=== PATIENT | female | born 1985 | race African-American/Black ===

== ENCOUNTER 2016-09-01 19:55 | Emergency (ER) | payer OTHER ==
[~2016-09-01 19:55] MED LIST: ABILIFY 15MG15 MG PO; AMITRIPTYLINE H25 M2; AMOXICILLIN875 MG PO; AMOXIL500 MG PO; AUGMENTIN 500M500 MG PO; BACTRIM DS 8001 TAB PO; BENTYL20 MG PO; BIRTH CONTROL PO; BLM PO; CEPHALEXIN500 MG PO; CIPRO 500MG TA500 MG PO; CLONAZEPAM1 MG PO; DEPO-PROVER150 MG/ML IM; DIFLUCAN150 MG PO; DOXYCYCLINE100 MG PO; ENDOCET 325 MG-1 TA1 PO; FIORICET 50-301 EACH PO; FLAG500 PO; FLEXERIL10 MG PO; FLUOXETINE20 MG PO; HYDROCODONE/ACE1 TA1 PO; IBU600 MG PO; IMITREX50 M1 PO; LIDODERM 5% PAT1 PAT TOP; LIORESAL 10MG T10 MG PO; MACROBID100 MG PO; MEDROL DOSEPAK1 PAC PO; MEDROXYPROG150 MG/ML IM; MOBIC15 MG PO; MOTRIN 600 MG600 MG PO; MOTRIN800 MG PO; MULTI-DAY VITA1 EACH PO; NAPROSYN 500 M500 MG PO; NEURONTIN300 M1 PO; NEURONTIN300 MG PO; PAXIL40 MG PO; PERCOCET 325 MG1 TA2 PO; PERCOCET 5-3251 EACH PO; PREDNISONE10 MG PO; PREDNISONE20 M1 PO; PRILOSEC 20MG C20 MG PO; PRILOSEC40 MG PO; PROMETHAZINE HC25 M3 PO; PROVENTIL0.09 MG/A1 INH; PYRIDIUM100 MG PO; PYRIDIUM200 M1 PO; PYRIDIUM200 MG PO; SKELAXIN800 MG PO; TESSALON PERLE100 MG PO; TOPIRAMATE25 MG PO; TRAMADOL HCL50 M1 PO; TRAMADOL50 MG PO; TRAZODONE100 MG PO; TYLENOL #31 TAB PO; VIBRAMYCIN 100100 MG PO; VICODIN 300 MG-1 TAB PO; VICODIN5-300 PO; ZITHROMAX Z-PA250 M1 PO; ZOFRAN ODT4 MG PO; ZOFRAN4 M1 PO
--- NOTE | 2016-09-01 20:25 | ED GENERAL ADULT ---
History of Present Illness General Chief Complaint: General Adult Stated Complaint: "I CANT EXPLAIN I JUST DONT FEEL RIGHT" Source: patient Exam Limitations: no limitations Vital Signs & Intake/Output Vital Signs & Intake/Output Vital Signs Date Time Temp Pulse Resp B/P Pulse O2 O2 Flow FiO2 Ox Delivery Rate 09/01 2139 98.2 80 18 120/79 99 Room Air 09/01 2006 98.0 82 22 121/82 98 Room Air ED Intake and Output 09/02 0000 09/01 1200 Intake Total 0 Output Total Balance 0 Intake, Oral 0 Patient 180 lb Weight Allergies Coded Allergies: NO KNOWN ALLERGIES (10/22/15) Reconcile Medications Amitriptyline HCl (Unknown Strength) TABLET (Unknown Dose) UNKNOWN (Reported) Butalb/Acetaminophen/Caffeine (Fioricet 50-300-40 MG Capsule) 50 MG-300 MG-40 MG CAPSULE 1 TAB PO Q4H PRN HEADACHE Gabapentin (Neurontin) 300 MG CAPSULE 1 CAP PO TID PAIN CONTROL (Reported) Norgestimate-Ethinyl Estradiol (Tri-Sprintec Tablet) [id number] 28 TABLET 1 TAB PO DAILY CONTROL (Reported) Oxycodone HCl/Acetaminophen (Percocet 5-325 MG Tablet) 5 MG-325 MG TABLET 1 TAB PO TID PRN HEADACHE Triage Note: PER PT "IF I HAD A CAR I WOULD GO SOMEWHERE ELSE" YOU PEOPLE CANNOT EVER FIND IT OUT". PT HAD UROLOGICAL PROCEDURE HX OF INTERSTITIAL CYSTITIS ALSO PASS ALOT OF STONES, THROBBING PAIN UNSURE OF LAST MENSES. Triage Nurses Notes Reviewed? yes Onset: Gradual Duration: day(s):, waxing and waning Injury Environment: home Severity: moderate Modifying Factors: Worsens With: movement. Associated Symptoms: dysuria, lower abdominal pressure : No Patient currently breastfeeds: No HPI: 31 yo woman, history of interstitial cystitis, status post Botox injection one month ago, presents with lower abdominal pain for the past 5-6 days. She states, "I've been having these symptoms off and on for years. I know there is no cure. I feel nauseous, weak all over, with body aches." She notes that it [place] when she urinates, consistent with her prior episodes of interstitial cystitis. She has no fever chills vaginal discharge diarrhea chest pain shortness of breath. Past History Travel History Traveled to [place] past 21 day No Medical History Any Pertinent Medical History? see below for history Neurological: migraine EENT: NONE Cardiovascular: NONE Respiratory: NONE Gastrointestinal: NONE Hepatic: NONE Renal: URINARY RETENTION Musculoskeletal: disk herniation, fibromyalgia Psychiatric: anxiety, depression Endocrine: hypoglycemia Blood Disorders: PE Cancer(s): NONE CAGE LOADER/Reproductive: OVARIAN CYST History of MRSA: No History of VRE: No History of CDIFF: No Tetanus Vaccine: 09/27/11 Surgical History Surgical History: URETHRA RESECTION AND TUMOR REMOVAL. bladder strecthing surgery Psychosocial History What is your primary language Divehi Tobacco Use: Current Daily Use Daily Tobacco Use Amount/Type: => 5 Cigarettes daily Family History Family History, If Any: Relation not specified for: *No pertinent family history Hx Contributory? No Review of Systems Review of Systems Constitutional: Reports: no symptoms. EENTM: Reports: no symptoms. Respiratory: Reports: no symptoms. Cardiovascular: Reports: no symptoms. GI: Reports: no symptoms. Genitourinary: Reports: no symptoms. Musculoskeletal: Reports: no symptoms. Skin: Reports: no symptoms. Neurological/Psychological: Reports: no symptoms. Hematologic/Endocrine: Reports: no symptoms. Immunologic/Allergic: Reports: no symptoms. All Other Systems: Reviewed and Negative Physical Exam Physical Exam General Appearance: well developed/nourished, mild distress Head: atraumatic, normal appearance Eyes: Bilateral: normal appearance. Ears, Nose, Throat: normal pharynx Neck: normal inspection, supple, full range of motion Respiratory: normal breath sounds, chest non-tender, no respiratory distress, quiet respiration Cardiovascular: regular rate/rhythm Gastrointestinal: normal bowel sounds, soft, no organomegaly, minimal right lower quadrant and suprapubic tenderness to palpation Back: normal inspection, normal range of motion Extremities: normal inspection, normal capillary refill, normal range of motion, no edema Neurologic/Psych: no motor/sensory deficits, awake, alert, oriented x 3 Skin: intact, normal color, warm/dry Core Measures ACS in differential dx? No CVA/TIA Diagnosis: No Severe Sepsis Present: No Septic Shock Present: No Progress Differential Diagnoses I considered the following diagnoses in my evaluation of the patient: Kidney stones versus interstitial cystitis versus UTI versus appendicitis versus other Plan of Care: Orders Procedure Date/time Status URINALYSIS 09/01 2032 Complete LIPASE 09/01 2032 Complete HEPATIC FUNCTION PANEL 02/24 2033 Complete HUMAN BETA HCG SCREEN 09/01 2032 Complete CBC WITHOUT DIFFERENTIAL 09/01 2032 Complete BASIC METABOLIC PANEL 09/01 2032 Complete AMYLASE 09/01 2032 Complete Laboratory Tests 09/01/162055: Urine Color YEL, Urine Clarity CLEAR, Urine pH 6.5, Ur Specific [place] <= 1.005 , Urine Protein NEG, Urine Ketones NEG, Urine Nitrite NEG, Urine Bilirubin NEG, Urine Urobilinogen 0.2, Ur Leukocyte Esterase NEG, Ur Microscopic EXAM NOT REQUIRED, Urine Hemoglobin NEG, Urine Glucose NEG 09/01/162052: Anion Gap 8, Estimated GFR > 60, BUN/Creatinine Ratio 11.4, Glucose 85, Calcium 9.3, Total Bilirubin 0.5, Direct Bilirubin 0.3, AST 18, ALT 21, Alkaline Phosphatase 84, Total Protein 7.0, Albumin 4.0, Amylase 52, Lipase 49, Total Beta HCG NEGATIVE, CBC w Diff NO MAN DIFF REQ, RBC 4.63, MCV 85.8, MCH 28.1, RDW 13.9, MPV 9.2, Gran % 56.3, Lymphocytes % 33.7, Monocytes % 6.2, Eosinophils % 2.7, Basophils % 1.1, Absolute Granulocytes 7.2 H, Absolute Lymphocytes 4.3 H, Absolute Monocytes 0.8 H, Absolute Eosinophils 0.3, Absolute Basophils 0.1, PUBS MCHC 32.7 L Diagnostic Imaging: Viewed by Me: CT Scan. Discussed w/RAD: CT Scan. Radiology Impression: ABD/PELVIC... NO ACUTE CHANGE. Initial ED EKG: none Comments: PATIENT: REYES DE LA ROSA PRESENT AGE: 31 PATIENT ACCOUNT NO: [id number] : 86 LOCATION: [facility] ORDERING PHYSICIAN: LADONNA OSWALD MD SERVICE DATE: 09/01/16 EXAM TYPE: CAT - CT ABD & PELVIS W/O IV CONTRAS EXAMINATION: CT ABDOMEN AND PELVIS WITHOUT CONTRAST CLINICAL INFORMATION: Right lower quadrant pain. COMPARISON: CT scan abdomen pelvis 09/25/2015 TECHNIQUE: Multidetector volumetric imaging was performed from the superior aspect of the liver through the pubic symphysis. Sagittal and coronal reformatted images were obtained on the technologist's workstation. DLP: 304.31 mGy-cm FINDINGS: LUNG BASES: The visualized lung bases are unremarkable. LIVER, GALLBLADDER, AND BILIARY TREE: The liver is normal in size, shape, and attenuation. No focal hepatic lesion or biliary ductal dilatation is present. Gallbladder is contracted. No bile duct dilatation. PANCREAS: Unremarkable. SPLEEN: Unremarkable. ADRENAL GLANDS: Unremarkable. KIDNEYS AND URETERS: The kidneys are normal in size, shape, and attenuation. No hydronephrosis, hydroureter, or calculi seen. No perinephric stranding. BLADDER: Unremarkable. GASTROINTESTINAL TRACT: The small and large bowel are unremarkable. The appendix is unremarkable. ABDOMINAL WALL: No significant hernia is appreciated. LYMPH NODES: Normal. VASCULAR: Unremarkable. PELVIC VISCERA: Unremarkable. OSSEOUS STRUCTURES: Unremarkable. IMPRESSION: No significant abnormality. Normal appendix. DICTATED BY: ANGELINA MORELOS MD DATE/TIME DICTATED:09/01/162343 INSPECTOR RAG SORTING:GINA DATE/TIME TRANSCRIBED:09/01/162343 CONFIDENTIAL, DO NOT COPY WITHOUT APPROPRIATE AUTHORIZATION. <Electronically signed in Other Vendor System> SIGNED BY: ANGELINA MORELOS MD 09/01/16 9910 Departure Departure Disposition: HOME OR SELF CARE Condition: Stable Clinical Impression Primary Impression: Abdominal pain Referrals: JONNATHAN MOONEY MD (PCP/Family) Departure Forms: Customer Survey General Discharge Information Comments 09/02/16, 0:05.... pt feeling well. benign labs, negative ct scan. pt safe for discharge. Critical Care Note Critical Care Note Critical Care Time: non-applicable
[2016-09-01 21:00] LABS: ABSOLUTE BASOPHIL COUNT 0.1 /CUMM (0.0-0.2); ABSOLUTE EOSINOPHIL COUNT 0.3 /CUMM (0.0-0.7); ABSOLUTE GRANULOCYTE CT 7.2 /CUMM (1.4-6.5); ABSOLUTE LYMPH COUNT 4.3 /CUMM (1.2-3.4); ABSOLUTE MONOCYTE COUNT 0.8 /CUMM (0.10-0.60); BASOPHIL % 1.1 % (0.0-2.0); EOSINOPHIL % 2.7 % (0-5); GRANULOCYTE % 56.3 % (42.2-75.2); HEMATOCRIT 39.8 % (37-47); MEAN CORPUSCULAR HGB 28.1 PG (27.0-31.0); MEAN CORPUSCULAR HGB CONC 32.7 G/DL (33.0-37.0); MEAN CORPUSCULAR VOLUME 85.8 FL (81.0-99.0); MEAN PLATELET VOLUME 9.2 FL (7.4-10.4); PLATELET COUNT 207 /CUMM (130-400); RBC DISTRIBUTION WIDTH 13.9 % (11.5-14.5); RED BLOOD CELL CT 4.63 /CUMM (4.20-5.40); WHITE BLOOD CELL COUNT 12.7 /CUMM (4.8-10.8)
[2016-09-01 21:40] VITALS: BP 120/79
[2016-09-01] MEDS ORDERED: TRI-SPRINTEC T1 EACH PO (23:33)
--- NOTE | 2016-09-01 23:53 | CT SCAN REPORT ---
EXAMINATION: CT ABDOMEN AND PELVIS WITHOUT CONTRAST CLINICAL INFORMATION: Right lower quadrant pain. COMPARISON: CT scan abdomen pelvis 09/25/2015 TECHNIQUE: Multidetector volumetric imaging was performed from the superior aspect of the liver through the pubic symphysis. Sagittal and coronal reformatted images were obtained on the technologist's workstation. DLP: 304.31 mGy-cm FINDINGS: LUNG BASES: The visualized lung bases are unremarkable. LIVER, GALLBLADDER, AND BILIARY TREE: The liver is normal in size, shape, and attenuation. No focal hepatic lesion or biliary ductal dilatation is present. Gallbladder is contracted. No bile duct dilatation. PANCREAS: Unremarkable. SPLEEN: Unremarkable. ADRENAL GLANDS: Unremarkable. KIDNEYS AND URETERS: The kidneys are normal in size, shape, and attenuation. No hydronephrosis, hydroureter, or calculi seen. No perinephric stranding. BLADDER: Unremarkable. GASTROINTESTINAL TRACT: The small and large bowel are unremarkable. The appendix is unremarkable. ABDOMINAL WALL: No significant hernia is appreciated. LYMPH NODES: Normal. VASCULAR: Unremarkable. PELVIC VISCERA: Unremarkable. OSSEOUS STRUCTURES: Unremarkable. IMPRESSION: No significant abnormality. Normal appendix.
== END 2016-09-02 00:46 ==
LOC: ERH 19:55
PROVIDERS: Pediatrics
DX: R10.30 Lower abdominal pain, unspecified (principal)
CPT/HCPCS: 74176; 81003; 96372; 96374; 96375; J0500; J1885; J2405

== ENCOUNTER 2016-09-10 00:25 | Emergency (ER) | payer OTHER ==
[~2016-09-10] VITALS: Ht 162.6 cm; Wt 81.6 kg
[~2016-09-10 00:25] MED LIST changes: +TRI-SPRINTEC T1 EACH PO
--- NOTE | 2016-09-10 00:32 | ED GI/GU/ABDOMINAL COMPLAINT ---
History of Present Illness General Chief Complaint: General Adult Stated Complaint: KIDNEY STONE PAIN Source: patient, old records Exam Limitations: no limitations Vital Signs & Intake/Output Vital Signs & Intake/Output Vital Signs Date Time Temp Pulse Resp B/P Pulse O2 O2 Flow FiO2 Ox Delivery Rate 09/10 0025 96.8 96 18 136/74 100 Room Air Allergies Coded Allergies: NO KNOWN ALLERGIES (10/22/15) Reconcile Medications Amitriptyline HCl (Unknown Strength) TABLET (Unknown Dose) UNKNOWN (Reported) Butalb/Acetaminophen/Caffeine (Fioricet 50-300-40 MG Capsule) 50 MG-300 MG-40 MG CAPSULE 1 TAB PO Q4H PRN HEADACHE Gabapentin (Neurontin) 300 MG CAPSULE 1 CAP PO TID PAIN CONTROL (Reported) Norgestimate-Ethinyl Estradiol (Tri-Sprintec Tablet) [id number] 28 TABLET 1 TAB PO DAILY CONTROL (Reported) Oxycodone HCl/Acetaminophen (Percocet 5-325 MG Tablet) 5 MG-325 MG TABLET 1 TAB PO TID PRN HEADACHE Triage Nurses Notes Reviewed? yes ? U Is pt currently ? No Duration: getting worse Timing: recent history Severity Numbers: 10 Location: generalized abdomen Radiation: back Activities at Onset: none HPI: Patient is a 31-year-old female with past medical history of kidney stones and interstitial cystitis who presents emergency room stating that for the last 4 days patient has had worsening symptoms of generalized abdominal pain with radiation to her back patient was evaluated by her urologist yesterday Dr. ADAMS was prescribed Percocet which patient took medications for the last 24 hours with no relief of pain. Patient states that she has had no bowel movements the past 4 days however she does state that she passed a little water through a bowel movement no blood no melena noted. Patient denies any fever chills or nausea or vomiting. Patient does complain of dysuria however no frequency changes of urination and no vaginal bleeding or discharge. (KATYA DOAN) Past History Travel History Traveled to [place] past 21 day No Medical History Any Pertinent Medical History? 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 bladder strecthing surgery Psychosocial History What is your primary language Mauritanian Family History Family History, If Any: Relation not specified for: *No pertinent family history Hx Contributory? No (KATYA DOAN) Review of Systems Review of Systems Constitutional: Reports: no symptoms. EENTM: Reports: no symptoms. Respiratory: Reports: no symptoms. Cardiovascular: Reports: no symptoms. GI: Reports: see HPI, abdominal pain. Genitourinary: Reports: see HPI, dysuria. Musculoskeletal: Reports: see HPI, back pain. Skin: Reports: no symptoms. Neurological/Psychological: Reports: no symptoms. Hematologic/Endocrine: Reports: no symptoms. Immunologic/Allergic: Reports: no symptoms. All Other Systems: Reviewed and Negative (KATYA DOAN) Physical Exam Physical Exam General Appearance: moderate distress Gastrointestinal: normal bowel sounds, soft, GENERALIZED POINT TENDERNESS NOTED Comments: HEENT: Normal EENT exam Neck: Supple, no lymphadenopathy, normal range of motion without pain or tenderness Back: No CVA tenderness Cardiovascular: Regular rate and rhythms no murmurs rubs or gallops, normal JVP Respiratory: Chest nontender. No respiratory distress.breath sounds clear to auscultation bilaterally Extremity: No edema, no calf tenderness to palpation, normal and equal pulses. Neuro: Alert oriented x3, motor sensory normal, Skin: No appreciable rash on exposed skin, skin is warm and dry. Psych: Mood and affect is normal, memory and judgment is normal. Core Measures ACS in differential dx? No Severe Sepsis Present: No Septic Shock Present: No (KATYA DOAN) Progress Differential Diagnosis: AAA, AMI, appendicitis, biliary colic, bowel obstruction , colon cancer, cholecystitis, diverticulitis, ectopic , endometritis, esophageal varices, gastritis, hepatitis, hernia, hemorrhoids, ischemic bowel, inflamm bowel dis, intrauterine , kidney stone, Callie-Elsa tear, ovarian cyst, ovarian torsion, pancreatitis, PID/cervicitis, peptic ulcer, PUD/ GERD, perforated viscous, SBO, threatened AB, UTI/pyelo Plan of Care: Orders Procedure Date/time Status LACTIC ACID 09/10 0331 Active LIPASE 09/10 0046 Complete AMYLASE 09/10 0046 Complete URINE DRUG SCREEN FOR ER ONLY 03/05 0031 Active URINALYSIS 09/10 30 Active LACTIC ACID 09/10 30 Complete HUMAN BETA HCG SCREEN 09/10 30 Complete COMPREHENSIVE METABOLIC PANEL 09/10 30 Complete CBC WITHOUT DIFFERENTIAL 09/10 30 Complete Laboratory Tests 09/10/16 0046: Anion Gap 12, Estimated GFR > 60, BUN/Creatinine Ratio 15.0, Glucose 75, Lactic Acid 0.9, Calcium 9.6, Total Bilirubin 0.4, AST 21, ALT 26, Alkaline Phosphatase 85, Total Protein 6.8, Albumin 3.9, Globulin 2.9, Albumin/Globulin Ratio 1.3, Amylase 99, Lipase 48, Total Beta HCG NEGATIVE, CBC w Diff NO MAN DIFF REQ, RBC 4.82, MCV 85.4, MCH 28.4, RDW 13.7, MPV 10.0, Gran % 63.7, Lymphocytes % 27.7, Monocytes % 5.8, Eosinophils % 2.4, Basophils % 0.4, Absolute Granulocytes 10.9 H, Absolute Lymphocytes 4.8 H, Absolute Monocytes 1.0 H, Absolute Eosinophils 0.4, Absolute Basophils 0.1, PUBS MCHC 33.2 09/10/16 0032: Amylase Cancelled, Lipase Cancelled Discussed HANDOFF with Dr. Hanna (NITA NG,KATYA) Diagnostic Imaging: Viewed by Me: CT Scan. Initial ED EKG: none Hand-Off Endorsed To: EPHRAIM FALCON,SARAH Santos Endorsed Time: 011 Pending: CT, labs (KATYA DOAN) Radiology Impression: PATIENT: REYES DE LA ROSA PRESENT AGE: 31 PATIENT ACCOUNT NO: [id number] : 86 LOCATION: [facility] ORDERING PHYSICIAN: KATYA NG SERVICE DATE: 09/10/16 EXAM TYPE: CAT - CT ABD & PELVIS W/O IV CONTRAS EXAMINATION: CT ABDOMEN AND PELVIS WITHOUT CONTRAST CLINICAL INFORMATION: Generalized abdominal pain, back pain COMPARISON: 2016 TECHNIQUE: Multidetector volumetric imaging was performed from the superior aspect of the liver through the pubic symphysis. Sagittal and coronal reformatted images were obtained on the technologist's workstation. DLP: 456.65 mGy-cm FINDINGS: LUNG BASES: The visualized lung bases are unremarkable. LIVER, GALLBLADDER, AND BILIARY TREE: The liver is normal in size, shape, and attenuation. No focal hepatic lesion or biliary ductal dilatation is present. The gallbladder is unremarkable with no evidence of radiopaque gallstones, gallbladder wall thickening, or obvious pericholecystic inflammatory changes. PANCREAS: Unremarkable. SPLEEN: Unremarkable. ADRENAL GLANDS: Unremarkable. KIDNEYS AND URETERS: A punctate left lower pole renal calculus is noted. No hydronephrosis or ureteral calculi bilaterally. No perinephric stranding. BLADDER: Unremarkable. GASTROINTESTINAL TRACT: Assessment of some segments of the colon is limited due to luminal decompression, and the possibility of mild wall thickening in the descending colon cannot be excluded though no significant surrounding inflammatory change is seen. No evidence of bowel obstruction. The appendix is unremarkable. ABDOMINAL WALL: No significant hernia is appreciated. LYMPH NODES: Normal. VASCULAR: Unremarkable. PELVIC VISCERA: Unremarkable. OSSEOUS STRUCTURES: Unremarkable. IMPRESSION: 1. Punctate left lower pole renal calculus. No hydronephrosis or ureteral calculi identified. 2. Possible mild wall thickening of the descending colon, for which a mild colitis cannot be excluded in the proper clinical setting. DICTATED BY: MAO NAVARRETE MD DATE/ TIME DICTATED:09/10/16120 BOTTOM BUFFER:GINA DATE/TIME TRANSCRIBED: 09/10/16120 CONFIDENTIAL, DO NOT COPY WITHOUT APPROPRIATE AUTHORIZATION. < Electronically signed in Other Vendor System> SIGNED BY: MAO NAVARRETE MD 09/10/16 013 (EPHRAIM FALCON,SARAH Santos) Departure Departure Disposition: HOME OR SELF CARE Condition: Stable Referrals: JONNATHAN MOONEY MD (PCP/Family) Additional Instructions: As discussed follow-up with your urologist if symptoms continue. Continue all medications as directed. If symptoms worsen return to emergency room Departure Forms: Customer Survey General Discharge Information (KATYA DOAN) Departure Clinical Impression Primary Impression: Abdominal pain Secondary Impressions: Colitis Prescriptions: Current Visit Scripts Hyoscyamine (Levsin) 1 TAB PO Q4 PRN ABDOMINAL PAIN #20 TAB PA/[employer] Co-Sign Statement Statement: ED Attending supervision documentation- [X] I saw and evaluated the patient. I have also reviewed all the pertinent lab results and diagnostic results. I agree with the findings and the plan of care as documented in the PA's/[employer]'s documentation. [X]X I have reviewed the ED Record and agree with the PA's/[employer]'s documentation. [] Additions or exceptions (if any) to the PAs/[employer]'s note and plan are summarized below: [] (EPHRAIM FALCON,SARAH Santos)
[2016-09-10 01:03] LABS: ABSOLUTE BASOPHIL COUNT 0.1 /CUMM (0.0-0.2); ABSOLUTE EOSINOPHIL COUNT 0.4 /CUMM (0.0-0.7); ABSOLUTE GRANULOCYTE CT 10.9 /CUMM (1.4-6.5); ABSOLUTE LYMPH COUNT 4.8 /CUMM (1.2-3.4); BASOPHIL % 0.4 % (0.0-2.0); EOSINOPHIL % 2.4 % (0-5); GRANULOCYTE % 63.7 % (42.2-75.2); HEMATOCRIT 41.2 % (37-47); MEAN CORPUSCULAR HGB 28.4 PG (27.0-31.0); MEAN CORPUSCULAR HGB CONC 33.2 G/DL (33.0-37.0); MEAN CORPUSCULAR VOLUME 85.4 FL (81.0-99.0); PLATELET COUNT 196 /CUMM (130-400); RBC DISTRIBUTION WIDTH 13.7 % (11.5-14.5); RED BLOOD CELL CT 4.82 /CUMM (4.20-5.40)
--- NOTE | 2016-09-10 01:32 | CT SCAN REPORT ---
EXAMINATION: CT ABDOMEN AND PELVIS WITHOUT CONTRAST CLINICAL INFORMATION: Generalized abdominal pain, back pain COMPARISON: 09/01/2016 TECHNIQUE: Multidetector volumetric imaging was performed from the superior aspect of the liver through the pubic symphysis. Sagittal and coronal reformatted images were obtained on the technologist's workstation. DLP: 456.65 mGy-cm FINDINGS: LUNG BASES: The visualized lung bases are unremarkable. LIVER, GALLBLADDER, AND BILIARY TREE: The liver is normal in size, shape, and attenuation. No focal hepatic lesion or biliary ductal dilatation is present. The gallbladder is unremarkable with no evidence of radiopaque gallstones, gallbladder wall thickening, or obvious pericholecystic inflammatory changes. PANCREAS: Unremarkable. SPLEEN: Unremarkable. ADRENAL GLANDS: Unremarkable. KIDNEYS AND URETERS: A punctate left lower pole renal calculus is noted. No hydronephrosis or ureteral calculi bilaterally. No perinephric stranding. BLADDER: Unremarkable. GASTROINTESTINAL TRACT: Assessment of some segments of the colon is limited due to luminal decompression, and the possibility of mild wall thickening in the descending colon cannot be excluded though no significant surrounding inflammatory change is seen. No evidence of bowel obstruction. The appendix is unremarkable. ABDOMINAL WALL: No significant hernia is appreciated. LYMPH NODES: Normal. VASCULAR: Unremarkable. PELVIC VISCERA: Unremarkable. OSSEOUS STRUCTURES: Unremarkable. IMPRESSION: 1. Punctate left lower pole renal calculus. No hydronephrosis or ureteral calculi identified. 2. Possible mild wall thickening of the descending colon, for which a mild colitis cannot be excluded in the proper clinical setting.
[2016-09-10 02:01] LABS: WHITE BLOOD CELL COUNT 17.1 /CUMM (4.8-10.8)
[2016-09-10] MEDS ORDERED: LEVSIN0.125 M1 PO ×2 (02:52→02:54)
[2016-09-10 03:09] VITALS: BP 118/61
== END 2016-09-10 02:54 ==
LOC: ERH 00:25
PROVIDERS: Physician Assistant
DX: K52.9 Noninfective gastroenteritis and colitis, unspecified (principal)
CPT/HCPCS: 74176; 80307; 81025; 96374; 96375; J2405

== ENCOUNTER 2016-09-26 18:52 | Emergency (ER) | payer OTHER ==
[~2016-09-26] VITALS: Ht 162.6 cm; Wt 81.6 kg
[~2016-09-26 18:52] MED LIST changes: +LEVSIN0.125 M1 PO
[2016-09-26] MEDS ORDERED: IMITREX50 M1 PO (19:09)
[2016-09-26] MEDS ORDERED: OXYCODONE-ACET1 EAC1 PO (19:09)
--- NOTE | 2016-09-26 19:09 | ED GI/GU/ABDOMINAL COMPLAINT ---
See Addendum History of Present Illness General Chief Complaint: Abdominal Pain/Flank Pain Stated Complaint: FLANK PAIN Source: patient Exam Limitations: no limitations Vital Signs & Intake/Output Vital Signs & Intake/Output Vital Signs Date Time Temp Pulse Resp B/P Pulse O2 O2 Flow FiO2 Ox Delivery Rate 09/26 2145 98.3 69 15 115/74 100 Room Air 09/26 1900 98.0 74 18 114/80 98 Room Air ED Intake and Output 09/27 0000 09/26 1200 Intake Total 1000 Output Total Balance 1000 Intake, IV 1000 Patient 180 lb Weight Allergies Coded Allergies: NO KNOWN ALLERGIES (10/22/15) Reconcile Medications Gabapentin (Neurontin) 300 MG CAPSULE 1 CAP PO TID PAIN CONTROL (Reported) Hyoscyamine (Levsin) 0.125 MG TABLET 1 TAB PO Q4 PRN ABDOMINAL PAIN Ibuprofen 800 MG TABLET 1 TAB PO TID PRN PAIN Mirabegron (Myrbetriq) (Unknown Strength) TAB.ER.24H (Unknown Dose) PO DAILY BLADDER (Reported) Norgestimate-Ethinyl Estradiol (Tri-Sprintec Tablet) [id number] 28 TABLET 1 TAB PO DAILY CONTROL (Reported) Oxycodone HCl/Acetaminophen (Oxycodone-Acetaminophen 10-325) 10 MG-325 MG TABLET 1 TAB PO BID PAIN (Reported) Oxycodone HCl/Acetaminophen (Percocet 5-325 MG Tablet) 5 MG-325 MG TABLET 1 TAB PO 4XDP PRN PAIN TEN...[id number] Sumatriptan Succinate (Imitrex) 50 MG TABLET 1 TAB PO AD PRN MIGRAINES ( Reported) Triage Note: RECEIVED 31 YO FEMALE WITH HX OF KIDNEY STONES, C/O LOWER BACK PAIN RADIATING TO PELVIC AREA X ONE HOUR. Triage Nurses Notes Reviewed? yes ? n Is pt currently ? No Onset: Gradual Timing: recent history Location: left flank Radiation: LLQ Activities at Onset: none Prior Abdominal Problems: similar symptoms Modifying Factors: Worsens With: palpation, urinating. Associated Symptoms: abdominal pain HPI: 31-year-old woman with a history of kidney stones and chronic abdominal pain presents with 1 hour of left flank and left lower quadrant abdominal pain similar to her prior episodes. She shares that she was seen here a few weeks ago. She had a CAT scan that showed one kidney stone that was nonobstructive. She states, "I did have 3 kidney stones. I think I passed them." She notes occasional nausea but no vomiting or diarrhea. She states that she has some dysuria. She is otherwise Past History Travel History Traveled to [place] past 21 day No Medical History Any Pertinent Medical History? 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 bladder strecthing surgery Psychosocial History What is your primary language Bangladeshi Tobacco Use: Current Daily Use Daily Tobacco Use Amount/Type: => 5 Cigarettes daily Family History Family History, If Any: Relation not specified for: *No pertinent family history Hx Contributory? No Review of Systems Review of Systems Constitutional: Reports: no symptoms. EENTM: Reports: no symptoms. Respiratory: Reports: no symptoms. Cardiovascular: Reports: no symptoms. GI: Reports: no symptoms. Genitourinary: Reports: no symptoms. Musculoskeletal: Reports: no symptoms. Skin: Reports: no symptoms. Neurological/Psychological: Reports: no symptoms. Hematologic/Endocrine: Reports: no symptoms. Immunologic/Allergic: Reports: no symptoms. All Other Systems: Reviewed and Negative Physical Exam Physical Exam General Appearance: well developed/nourished, mild distress Head: atraumatic, normal appearance Eyes: Bilateral: normal appearance. Ears, Nose, Throat, Mouth: hearing grossly normal, moist mucous membrane Neck: normal inspection, supple, full range of motion, normal alignment Respiratory: normal breath sounds, chest non-tender, no respiratory distress, quiet respiration, lungs clear Cardiovascular: regular rate/rhythm Gastrointestinal: normal bowel sounds, soft, no organomegaly, MINIMAL TENDERNESS TO LEFT LOWER QUADRANT. NO REBOUND. NO GUARDING. Back: normal inspection Extremities: normal range of motion Neurologic/Psych: no motor/sensory deficits, awake, alert, oriented x 3 Core Measures ACS in differential dx? No Severe Sepsis Present: No Septic Shock Present: No Progress Differential Diagnosis: gastritis, intrauterine , kidney stone, ovarian cyst, UTI/pyelo Plan of Care: Orders Procedure Date/time Status URINALYSIS 09/26 1908 Complete LIPASE 09/26 1908 Complete HUMAN BETA HCG SCREEN 09/26 1908 Complete COMPREHENSIVE METABOLIC PANEL 09/26 1908 Complete CBC WITHOUT DIFFERENTIAL 09/26 1908 Complete AMYLASE 09/26 1908 Complete Laboratory Tests 09/26/164: Anion Gap 10, Estimated GFR > 60, BUN/Creatinine Ratio 18.6, Glucose 87, Calcium 9.4, Total Bilirubin 0.5, AST 30, ALT 31, Alkaline Phosphatase 81, Total Protein 7.2, Albumin 4.1, Globulin 3.1, Albumin/Globulin Ratio 1.3, Amylase 78, Lipase 113, Total Beta HCG NEGATIVE, CBC w Diff NO MAN DIFF REQ, RBC 4.60, MCV 85.8, MCH 27.8, RDW 14.1, MPV 9.3, Gran % 62.8, Lymphocytes % 25.6, Monocytes % 6.5, Eosinophils % 4.2, Basophils % 0.9, Absolute Granulocytes 7.1 H, Absolute Lymphocytes 2.9, Absolute Monocytes 0.7 H, Absolute Eosinophils 0.5, Absolute Basophils 0.1, PUBS MCHC 32.4 L, Urine Color YEL, Urine Clarity CLEAR, Urine pH 6.0, Ur Specific [place] 1.020, Urine Protein NEG, Urine Ketones NEG, Urine Nitrite NEG, Urine Bilirubin NEG, Urine Urobilinogen 0.2, Ur Leukocyte Esterase NEG, Ur Microscopic EXAM NOT REQUIRED, Urine Hemoglobin NEG, Urine Glucose NEG Diagnostic Imaging: Viewed by Me: CT Scan. Discussed w/RAD: CT Scan. Radiology Impression: 09/10/16 ABD/PELVIC .... PUNCTATE STONE, NON OBSTRUCTIVE.... FULL REPORT BELOW. Initial ED EKG: none Comments: PATIENT: REYES DE LA ROSA PRESENT AGE: 31 PATIENT ACCOUNT NO: [id number] : 86 LOCATION: [facility] ORDERING PHYSICIAN: KATYA GN SERVICE DATE: 09/10/16 EXAM TYPE: CAT - CT ABD & PELVIS W/O IV CONTRAS EXAMINATION: CT ABDOMEN AND PELVIS WITHOUT CONTRAST CLINICAL INFORMATION: Generalized abdominal pain, back pain COMPARISON: 09/01/2016 TECHNIQUE: Multidetector volumetric imaging was performed from the superior aspect of the liver through the pubic symphysis. Sagittal and coronal reformatted images were obtained on the technologist's workstation. DLP: 456.65 mGy-cm FINDINGS: LUNG BASES: The visualized lung bases are unremarkable. LIVER, GALLBLADDER, AND BILIARY TREE: The liver is normal in size, shape, and attenuation. No focal hepatic lesion or biliary ductal dilatation is present. The gallbladder is unremarkable with no evidence of radiopaque gallstones, gallbladder wall thickening, or obvious pericholecystic inflammatory changes. PANCREAS: Unremarkable. SPLEEN: Unremarkable. ADRENAL GLANDS: Unremarkable. KIDNEYS AND URETERS: A punctate left lower pole renal calculus is noted. No hydronephrosis or ureteral calculi bilaterally. No perinephric stranding. BLADDER: Unremarkable. GASTROINTESTINAL TRACT: Assessment of some segments of the colon is limited due to luminal decompression, and the possibility of mild wall thickening in the descending colon cannot be excluded though no significant surrounding inflammatory change is seen. No evidence of bowel obstruction. The appendix is unremarkable. ABDOMINAL WALL: No significant hernia is appreciated. LYMPH NODES: Normal. VASCULAR: Unremarkable. PELVIC VISCERA: Unremarkable. OSSEOUS STRUCTURES: Unremarkable. IMPRESSION: 1. Punctate left lower pole renal calculus. No hydronephrosis or ureteral calculi identified. 2. Possible mild wall thickening of the descending colon, for which a mild colitis cannot be excluded in the proper clinical setting. DICTATED BY: MAO NAVARRETE MD DATE/TIME DICTATED:09/10/16120 [employer] C[employer]:GINA DATE/TIME TRANSCRIBED:09/10/16120 CONFIDENTIAL, DO NOT COPY WITHOUT APPROPRIATE AUTHORIZATION. <Electronically signed in Other Vendor System> SIGNED BY: MAO NAVARRETE MD 09/10/16 0132 Departure Departure Disposition: HOME OR SELF CARE Condition: Stable Clinical Impression Primary Impression: Abdominal pain Referrals: JONNATHAN MOONEY MD (PCP/Family) Departure Forms: Customer Survey General Discharge Information Prescriptions: Current Visit Scripts Ibuprofen 1 TAB PO TID PRN PAIN #60 TAB Oxycodone HCl/Acetaminophen (Percocet 5-325 MG Tablet) 1 TAB PO 4XDP PRN PAIN #10 TAB TEN...[id number] Comments 09/26/16, 9:30PM...labs benign... pt still with mild discomfort... I offered a ct scan... She declines. She would like to go home. I advocated close follow up.
[2016-09-26] MEDS ORDERED: MYRBETRIQ50 M1 PO (19:10)
[2016-09-26 19:56] LABS: ABSOLUTE BASOPHIL COUNT 0.1 /CUMM (0.0-0.2); ABSOLUTE EOSINOPHIL COUNT 0.5 /CUMM (0.0-0.7); ABSOLUTE GRANULOCYTE CT 7.1 /CUMM (1.4-6.5); ABSOLUTE LYMPH COUNT 2.9 /CUMM (1.2-3.4); ABSOLUTE MONOCYTE COUNT 0.7 /CUMM (0.10-0.60); BASOPHIL % 0.9 % (0.0-2.0); EOSINOPHIL % 4.2 % (0-5); GRANULOCYTE % 62.8 % (42.2-75.2); HEMATOCRIT 39.5 % (37-47); MEAN CORPUSCULAR HGB 27.8 PG (27.0-31.0); MEAN CORPUSCULAR HGB CONC 32.4 G/DL (33.0-37.0); MEAN CORPUSCULAR VOLUME 85.8 FL (81.0-99.0); MEAN PLATELET VOLUME 9.3 FL (7.4-10.4); PLATELET COUNT 226 /CUMM (130-400); RBC DISTRIBUTION WIDTH 14.1 % (11.5-14.5); WHITE BLOOD CELL COUNT 11.3 /CUMM (4.8-10.8)
[2016-09-26] MEDS ORDERED: IBUPROFEN800 M1 PO (21:27)
[2016-09-26] MEDS ORDERED: PERCOCET 5-3251 EACH PO (21:27)
[2016-09-26 21:45] VITALS: BP 115/74
== END 2016-09-26 21:45 ==
LOC: ERH 18:52
PROVIDERS: Pediatrics
DX: R10.32 Left lower quadrant pain (principal)
CPT/HCPCS: 81003; 96374; 96375; J1885; J2405

== ENCOUNTER 2017-09-12 13:06 | Emergency (ER) | payer OTHER ==
[~2017-09-12] VITALS: Ht 162.6 cm; Wt 72.6 kg
[~2017-09-12 13:06] MED LIST changes: +AMOXICILLIN875 M1 PO; +DOXYCYCLINE HY100 M4 PO; +IBUPROFEN800 M1 PO; +MYRBETRIQ50 M1 PO; +OXYCODONE-ACET1 EAC1 PO; +PREDNISONE50 M1 PO
--- NOTE | 2017-09-12 14:32 | ED GI/GU/ABDOMINAL COMPLAINT ---
History of Present Illness General Chief Complaint: Female Urogenital Problems Stated Complaint: VAGINAL BLEEDING Source: patient, old records Exam Limitations: no limitations Vital Signs & Intake/Output Vital Signs & Intake/Output Vital Signs Date Time Temp Pulse Resp B/P B/P Pulse O2 O2 Flow FiO2 Mean Ox Delivery Rate 09/12 1637 98.6 74 18 125/67 100 Room Air 09/12 1322 98.5 76 16 112/70 99 Room Air Allergies Coded Allergies: No Known Allergies (02/09/17) Reconcile Medications Amoxicillin 875 MG TABLET 1 TAB PO BID THROAT PAIN Ciprofloxacin HCl (Cipro) 500 MG TABLET 1 TAB PO BID UTI Doxycycline Hyclate 100 MG TABLET 1 TAB PO BID cystic acne Gabapentin (Neurontin) 300 MG CAPSULE 1 CAP PO TID PAIN CONTROL (Reported) Hyoscyamine (Levsin) 0.125 MG TABLET 1 TAB PO Q4 PRN ABDOMINAL PAIN Ibuprofen 800 MG TABLET 1 TAB PO TID PAIN Ibuprofen 800 MG TABLET 1 TAB PO TID PRN PAIN Mirabegron (Myrbetriq) (Unknown Strength) TAB.ER.24H (Unknown Dose) PO DAILY BLADDER (Reported) Norgestimate-Ethinyl Estradiol (Tri-Sprintec Tablet) [id number] 28 TABLET 1 TAB PO DAILY CONTROL (Reported) Oxycodone HCl/Acetaminophen (Oxycodone-Acetaminophen 10-325) 10 MG-325 MG TABLET 1 TAB PO BID PAIN (Reported) Oxycodone HCl/Acetaminophen (Percocet 5-325 MG Tablet) 5 MG-325 MG TABLET 1 TAB PO 4XDP PRN PAIN TEN...[id number] Prednisone 50 MG TABLET 1 TAB PO DAILY SWELLING LIPS Sumatriptan Succinate (Imitrex) 50 MG TABLET 1 TAB PO AD PRN MIGRAINES ( Reported) Triage Note: PT STATES SHE HAD BLADDER SURGERY WITH DR. CUELLAR AND SHE CALLED HIM TO LET HIM KNOW THAT SHE WAS HAVING A LOT OF "VAGINAL BLEEDING" TODAY PT STATES SHE IS HAVING LOWER ABD PAIN AND BURNING WITH URINATION. Triage Nurses Notes Reviewed? yes ? N Is pt currently ? No Onset: Gradual Duration: hour(s): Timing: recent history Quality/Severity: moderate Location: suprapubic HPI: 32yo female presents emergency department complaining of vaginal bleeding and dysuria beginning this morning. Patient states she had procedure performed with the urologist, Dr. Cuellar, yesterday to "stretch the bladder". She reports bleeding beginning today. Patient has had this procedure several times in the past and does not recall there being this amount of bleeding. Patient states that her period is not due for another week. Patient complaining of suprapubic abdominal pain beginning this morning as well. The patient denies fevers, chills, back pain, diarrhea, constipation, nausea, vomiting. (Cindy Hooks) Past History Travel History Traveled to [place] past 21 day No Medical History Any Pertinent Medical History? 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 bladder strecthing surgery Psychosocial History What is your primary language Kinyarwanda Tobacco Use: Current Daily Use Daily Tobacco Use Amount/Type: => 5 Cigarettes daily ETOH Use: occasional use Illicit Drug Use: denies illicit drug use Family History Family History, If Any: Relation not specified for: *No pertinent family history Hx Contributory? No (Cindy Hooks) Review of Systems Review of Systems Constitutional: Reports: no symptoms. EENTM: Reports: no symptoms. Respiratory: Reports: no symptoms. Cardiovascular: Reports: no symptoms. GI: Reports: see HPI. Genitourinary: Reports: see HPI. Musculoskeletal: Reports: no symptoms. Skin: Reports: no symptoms. Neurological/Psychological: Reports: no symptoms. Hematologic/Endocrine: Reports: no symptoms. Immunologic/Allergic: Reports: no symptoms. All Other Systems: Reviewed and Negative (Cindy Hooks) Physical Exam Physical Exam General Appearance: well developed/nourished, no apparent distress, alert, awake Head: atraumatic, normal appearance Eyes: Bilateral: normal appearance. Ears, Nose, Throat, Mouth: hearing grossly normal Neck: normal inspection, supple, full range of motion Respiratory: normal breath sounds, no respiratory distress, lungs clear Cardiovascular: regular rate/rhythm Gastrointestinal: normal bowel sounds, soft, no organomegaly, MILD suprapubic tenderness, no gaurding Pelvic: normal external exam, moderate blood in vaginal vault without cervical motion tenderness, no mass or tenderness with bimanual exam Back: normal inspection, normal range of motion, no CVA tenderness Extremities: normal range of motion Neurologic/Psych: awake, alert, oriented x 3 Skin: intact, normal color, warm/dry Core Measures ACS in differential dx? No Sepsis Present: No Sepsis Focused Exam Completed? No (Lidia NG,Cindy Cunningham) Progress Differential Diagnosis: bowel obstruction, ectopic , intrauterine , kidney stone, ovarian cyst, PID/cervicitis, threatened AB, UTI/pyelo, post operative bleeding Plan of Care: Orders Procedure Date/time Status Add-on Test (ER Only) 09/12 1442 Active COMPREHENSIVE METABOLIC PANEL 09/12 1439 Complete CBC WITHOUT DIFFERENTIAL 09/12 1439 Complete CULTURE,URINE 09/12 1347 Active URINE 09/12 1308 Complete URINALYSIS 09/12 1308 Complete Current Medications Sig/Evie Start time Last Medication Dose Stop Time Status Admin Ketorolac 30 MG ONCE ONE 09/12 1515 CAN Tromethamine 09/12 1516 (Toradol) Laboratory Tests 09/12/17 1525: Anion Gap 11, Estimated GFR > 60, BUN/Creatinine Ratio 11.4, Glucose 80, Calcium 9.2, Total Bilirubin 0.2, AST 21, ALT 22, Alkaline Phosphatase 74, Total Protein 6.7, Albumin 3.8, Globulin 2.9, Albumin/Globulin Ratio 1.3, CBC w Diff NO MAN DIFF REQ, RBC 4.59, MCV 86.0, MCH 27.4, MCHC 31.8 L, RDW 14.8 H, MPV 8.9, Gran % 69.7, Lymphocytes % 21.4, Monocytes % 7.2, Eosinophils % 1.5, Basophils % 0.2, Absolute Granulocytes 12.3 H, Absolute Lymphocytes 3.8 H, Absolute Monocytes 1.3 H, Absolute Eosinophils 0.3, Absolute Basophils 0 09/12/17 1347: Urine Color YEL, Urine Clarity HAZY H, Urine pH 6.5, Ur Specific [place] 1.015, Urine Protein NEG, Urine Ketones NEG, Urine Nitrite NEG, Urine Bilirubin NEG, Urine Urobilinogen 0.2, Ur Leukocyte Esterase TRACE H, Ur Microscopic SEDIMENT EXAMINED, Urine RBC >75 H, Urine WBC 1-3 H, Ur Epithelial Cells MOD H, Urine Bacteria FEW H, Urine Mucus FEW, Urine Hemoglobin LARGE H, Urine Glucose NEG, Urine Test NEGATIVE Microbiology 09/12 1347 URINE ROUT: Urine Culture - RECD Patient reports very low suspicion for STD. There is no cervical motion tenderness at this time. Urine shows possible UTI however difficult to determine based on patient's vaginal bleeding. Patient has leukocytosis today have her old labs reviewed, she had leukocytosis on previous visits for flank pain as well. Abdominal exam reveals some very mild suprapubic tenderness without guarding. Patient's vaginal bleeding may be related to menstruation, per old records patient was menstruating on her last visit here, 08/13/17. Patient started on antibiotics given her dysuria and also in urine for culture. It is recommended that patient follow up with Dr. Cuellar regarding her emergency department visit. Patient requesting pain medication here in the emergency department. She was medicated with two tabs percocet. 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 Patient states she ran out of this medication however I informed her that I could not refill a narcotic prescription given her outstanding prescription. The patient was upset with this and left the emergency department prior to signing her discharge paperwork. I offered to call Dr. Cuellar to discuss the patient's case with him however patient wished to leave prior to urology consult. I discussed this patient with Dr. Vega who agrees with the plan of care. Initial ED EKG: none (Lidia NG,Cindy Cunningham) Departure Departure Disposition: HOME OR SELF CARE Condition: Stable Clinical Impression Primary Impression: Vaginal bleeding Secondary Impressions: Dysuria Referrals: Patient Has No Primary Care Dr (PCP/Family) Additional Instructions: Begin antibiotics as prescribed. Continue tramadol as prescribed by your specialist for pain. Follow-up with Dr. Cuellar, call the office tomorrow to inform them of today's emergency department visit. Return with any worsening symptoms or concerns. Please note that there might be incidental findings in your evaluation that are unrelated to the current emergency department visit. Please notify your primary care doctor about this emergency department visit in order to obtain and review all of the testing performed so that these incidental findings can be monitored as needed. If you had an x-ray performed, please understand that some fractures may not be seen on the initial set of x-rays. If your symptoms persist you might need a repeat set of x-rays to check for such a fracture. If you had a laceration evaluated, please understand that foreign bodies such as glass or wood may not be visible to the naked eye or on plain x-rays. If the wound becomes red, swollen, increasingly more painful or if there is any drainage from the wound, please have it reevaluated by a physician for the possibility of a retained foreign body. If you're unable to follow up as outlined in the discharge instructions please return to the emergency department. Thank you for choosing the [facility] Emergency Department for your care. It was a pleasure to serve you today. Departure Forms: Customer Survey General Discharge Information Prescriptions: Current Visit Scripts Ciprofloxacin HCl (Cipro) 1 TAB PO BID #10 TAB (Lidia NG,Cindy Cunningham) PA/DIRECTOR FIELD SERVICES Co-Sign Statement Statement: ED Attending supervision documentation- [] I saw and evaluated the patient. I have also reviewed all the pertinent lab results and diagnostic results. I agree with the findings and the plan of care as documented in the PA's/DIRECTOR FIELD SERVICES's documentation. [X] I have reviewed the ED Record and agree with the PA's/DIRECTOR FIELD SERVICES's documentation. [] Additions or exceptions (if any) to the PAs/DIRECTOR FIELD SERVICES's note and plan are summarized below: [] (Gary FALCON,Hannah)
[2017-09-12 15:46] LABS: ABSOLUTE BASOPHIL COUNT 0 /CUMM (0.0-0.2); ABSOLUTE EOSINOPHIL COUNT 0.3 /CUMM (0.0-0.7); ABSOLUTE GRANULOCYTE CT 12.3 /CUMM (1.4-6.5); ABSOLUTE LYMPH COUNT 3.8 /CUMM (1.2-3.4); ABSOLUTE MONOCYTE COUNT 1.3 /CUMM (0.10-0.60); BASOPHIL % 0.2 % (0.0-2.0); EOSINOPHIL % 1.5 % (0-5); HEMATOCRIT 39.5 % (37-47); MEAN CORPUSCULAR HGB 27.4 PG (27.0-31.0); MEAN CORPUSCULAR HGB CONC 31.8 G/DL (33.0-37.0); MEAN PLATELET VOLUME 8.9 FL (7.4-10.4); PLATELET COUNT 249 /CUMM (130-400); RBC DISTRIBUTION WIDTH 14.8 % (11.5-14.5); RED BLOOD CELL CT 4.59 /CUMM (4.20-5.40); WHITE BLOOD CELL COUNT 17.6 /CUMM (4.8-10.8)
[2017-09-12 16:16] LABS: GRANULOCYTE % 69.7 % (42.2-75.2)
[2017-09-12 16:37] VITALS: BP 125/67
[2017-09-12] MEDS ORDERED: CIPRO500 M1 PO (16:37)
== END 2017-09-12 16:46 ==
LOC: ERH 13:06
PROVIDERS: Physician Assistant
DX: N93.9 Abnormal uterine and vaginal bleeding, unspecified (principal); R30.0 Dysuria
CPT/HCPCS: 81001; 81025; 87086